=== PATIENT | female | born 1985 | race African-American/Black ===

== ENCOUNTER 2017-01-17 10:48 | Day surgery (SDC) | payer OTHER ==
[2017-01-17] MEDS ORDERED: morphine CARPU-JECT 4 MG/1 ML DISP.SYRIN IVPUSH ONE ×2 (11:43→13:59)
[2017-01-17] MEDS ORDERED: SODIUM CHLORIDE 1,000 ML IV STA (11:43)
[2017-01-17] MEDS ORDERED: morphine CARPU-JECT 2 MG/1 ML DISP.SYRIN ONE ×2 (11:57→14:03)
--- NOTE | 2017-01-17 12:02 | PDOC ---
History of Present Illness - General Chief Complaint: Pain Stated Complaint: ABD PAIN Time Seen by Provider: 01/17/17 11:37 History Source: Patient - History of Present Illness Timing/Duration: reports: constant Quality: reports: severe Abdominal Pain Onset Location: reports: generalized abdomen Past History - Past Medical History Allergies/Adverse Reactions: Allergies Allergy/AdvReac Type Severity Reaction Status Date / Time amoxicillin AdvReac Verified 01/17/17 10:53 Home Medications: Ambulatory Orders Elviteg/Martha/Emtric/Tenofo Dis [Stribild Tablet] 1 each PO DAILY 01/17/17 HIV: Yes - Psycho/Social/Smoking Cessation Hx Anxiety: No Suicidal Ideation: No Smoking History: Never smoked Hx Alcohol Use: Yes (SOCIAL) Drug/Substance Use Hx: No Substance Use Type: None Review of Systems - Review of Systems Constitutional: No: Chills, Fever ABD/GI: Yes: Diarrhea, Abdominal cramping. No: Nausea, Vomiting : No: Dysuria *Physical Exam - Vital Signs Last Vital Signs Temp Pulse Resp BP Pulse Ox 98.2 F 96 H 20 100/67 98 01/17/17 10:50 01/17/17 10:50 01/17/17 10:50 01/17/17 10:50 01/17/17 10:50 - Physical Exam General Appearance: Yes: Appropriately Dressed, Mild Distress HEENT: positive: Normal Voice Neck: positive: Supple Respiratory/Chest: negative: Respiratory Distress Gastrointestinal/Abdominal: positive: Tender (diffusely, most notably over RLQ) , Soft, Other (neg murpheys). negative: Distended, Guarding, Rebound Musculoskeletal: negative: CVA Tenderness Integumentary: positive: Dry, Warm Neurologic: positive: Fully Oriented, Alert, Normal Mood/Affect ED Treatment Course - LABORATORY CBC & Chemistry Diagram: 01/17/17 12:00 01/17/17 12:00 - RADIOLOGY Radiology Studies Ordered: Category Date Time Status ABDOMEN & PELVIS CT WITH CONTR [CT] Stat CT Scan 01/17/17 11:48 Ordered Medical Decision Making - Medical Decision Making 01/17/17 11:49 31 yo F, h/o HIV on meds, unknown cd4/VL, no OIs, p/w abd pain w/ diarrhea. Patient reports severe diffuse abdominal pain since yesterday associated with multiple episodes of non-bloody, watery stool. No nausea, vomiting, fever, chills, dysuria or vaginal discharge. Patient reports having similar episodes multiple times in the past that usually spontaneously resolves. States she presented to ED this time because of severity of symptoms. No unusual food, recent abx use, sick contact or travel. See exam R/o appy vs colitis vs gastroenteritis -pain control -zofran -IVF -labs -CT 01/17/17 12:07 01/17/17 13:[address] as per radiology. Pre-op labs ordered and surgery c/s pending 01/17/17 14:02 Case d/w Dr Simon who wants pt admitted to surgery for OR today *DC/Admit/Observation/Transfer Diagnosis at time of Disposition: Acute appendicitis Qualifiers: Acute appendicitis type: unspecified acute appendicitis type Qualified Code(s) : K35.80 - Unspecified acute appendicitis - Discharge Dispostion Condition at time of disposition: Fair Admit: Yes - Referrals Referrals: STAFF,NOT ON [Primary Care Provider] -
[2017-01-17 12:11] LABS: BASOPHIL 0.8 % (0-2.0); EOSINOPHIL 0.2 % (0-4.5); MCH 30.4 pg (25.7-33.7); MCHC 33.9 g/dl (32.0-36.0); MEAN CELL VOLUME 89.7 fl (80-96); MEAN PLT VOLUME 6.9 fl (7.5-11.1); NEUTROPHILS 66.6 % (42.8-82.8); PLATELET COUNT 275 K/MM3 (134-434); RDW 12.7 % (11.6-15.6); WHITE BLOOD COUNT 9.6 K/mm3 (4.0-10.0)
[2017-01-17 12:29] LABS: URINE APPEARANCE CLOUDY; URINE BILIRUBIN NEGATIVE (NEGATIVE); URINE COLOR AMBER; URINE GLUCOSE (UA) NEGATIVE (NEGATIVE); URINE KETONE 1+ (NEGATIVE); URINE NITRITE NEGATIVE (NEGATIVE); URINE UROBILINOGEN NEGATIVE E.U./dl (0.2-1.0)
[2017-01-17 12:33] LABS: URINE BLOOD 1+ (NEGATIVE); URINE LEUK ESTERASE 3+ (NEGATIVE); URINE PROTEIN 1+ (NEGATIVE)
[2017-01-17 12:34] LABS: ALBUMIN 3.5 g/dl (3.4-5.0); ANION GAP 10 (8-16); CALCIUM 8.7 mg/dL (8.5-10.1); CO2 27 mmol/L (21-32); CREATININE 0.9 mg/dL (0.55-1.02); GLUCOSE,RANDOM 79 mg/dL (74-106); SGOT/AST 8 U/L (15-37); SGPT/ALT 14 U/L (12-78)
[2017-01-17 12:37] LABS: ALK PHOS 76 U/L (45-117); BILIRUBIN,TOTAL 0.8 mg/dL (0.2-1.0); TOT PROT 7.4 g/dl (6.4-8.2)
[2017-01-17 12:39] LABS: URINE BACTERIA RARE /hpf (NONE SEEN); URINE MUCUS RARE; URINE RBC 17 /hpf (0-3); URINE WBC 35 /hpf (3-5)
[2017-01-17 15:01] LABS: INR 1.44 (0.82-1.09)
[2017-01-17] MEDS ORDERED: ACETAMINOPHEN INJECTION 100 ML IVPB ONE (15:01)
[2017-01-17] MEDS ORDERED: SUCCINYLCHOLINE CHLORIDE 200 MG/10 ML VIAL ONE (15:10)
[2017-01-17] MEDS ORDERED: PROPOFOL 20 ML ONE ×2 (15:10)
[2017-01-17] MEDS ORDERED: ROCURONIUM BROMIDE 50 MG/5 ML VIAL ONE (15:10)
[2017-01-17] MEDS ORDERED: MIDAZOLAM HCL 2 MG/2 ML SINGLE DOSE VIAL ONE (15:11)
--- NOTE | 2017-01-17 15:27 | HP ---
Admitting History and Physical - Admission Chief Complaint: abd pain History of Present Illness: pt is a 31F hx HIV with 1 day hx abd pain which worsening and moved to [facility]. came to ER and workup reveals appendicitis on CT (nonperforated) History Source: Patient Limitations to Obtaining History: No Limitations - Past Medical History ...: No Infectious Disease: Yes: HIV - Smoking History Smoking history: Never smoked - Alcohol/Substance Use Hx Alcohol Use: Yes (SOCIAL) Home Medications - Allergies Allergies/Adverse Reactions: Allergies Allergy/AdvReac Type Severity Reaction Status Date / Time amoxicillin AdvReac Verified 01/17/17 10:53 - Home Medications Home Medications: Ambulatory Orders Elviteg/Martha/Emtric/Tenofo Dis [Stribild Tablet] 1 each PO DAILY 01/17/17 Review of Systems - Review of Systems Constitutional: denies: Chills, Fever Eyes: denies: Blind Spots, Blurred Vision HENT: denies: Difficult Swallowing, Ear Discharge Neck: denies: Decreased ROM, Lumps Cardiovascular: denies: Chest Pain, Edema Respiratory: denies: Cough, Exercise Intolerance Gastrointestinal: reports: Abdominal Pain Genitourinary: denies: Burning Breasts: denies: Lumps, Pain Musculoskeletal: denies: Back Pain, Joint Pain Integumentary: denies: Blister, Bruising Neurological: denies: Change in Speech, Confusion Endocrine: denies: Excessive Sweating, Flushing Hematology/Lymphatic: denies: Easily Bruised, Excessive Bleeding Psychiatric: denies: Altered Sleep Pattern, Anxiety Physical Examination Vital Signs: Vital Signs Temperature 98.3 F 01/17/17 14:41 Pulse Rate 75 01/17/17 14:41 Respiratory Rate 18 01/17/17 14:41 Blood Pressure 127/73 01/17/17 14:41 O2 Sat by Pulse Oximetry (%) 100 01/17/17 14:41 Constitutional: Yes: No Distress, Calm Eyes: Yes: Conjunctiva Clear HENT: Yes: Atraumatic Neck: Yes: Supple, Trachea Midline Cardiovascular: Yes: Regular Rate and Rhythm Respiratory: Yes: Regular Gastrointestinal: Yes: Soft, Tenderness. No: Distention ...Rectal Exam: Yes: Deferred Renal/: No: CVA Tenderness - Left, CVA Tenderness - Right Musculoskeletal: No: Joint Stiffness, Joint Swelling Extremities: No: Calf Tenderness, Erythema Integumentary: No: Erythema, Rash Neurological: Yes: Alert, Oriented Psychiatric: Yes: Alert, Oriented Labs: CBC, BMP 01/17/17 12:00 01/17/17 12:00 Imaging - Results Cat Scan: Report Reviewed Problem List - Problems (1) Acute appendicitis Assessment/Plan: for lap appy 23hr d/c in am likely Code(s): K35.80 - UNSPECIFIED ACUTE APPENDICITIS Qualifiers: Acute appendicitis type: unspecified acute appendicitis type Qualified Code(s): K35.80 - Unspecified acute appendicitis
[2017-01-17] MEDS ORDERED: GENTAMICIN SO4 80 MG/2 ML VIAL ONE (15:28)
[2017-01-17] MEDS ORDERED: CLINDAMYCIN 600 MG PREMIX BAG IVPB ONE (15:33)
[2017-01-17] MEDS ORDERED: GENTAMICIN 80MG PREMIX BAG IVPB ONE (15:39)
[2017-01-17] MEDS ORDERED: BUPIVACAINE HCL/PF 0.5% (5MG/ML) 10 ML VIAL ONE (16:23)
[2017-01-17] MEDS ORDERED: NEOSTIGMINE METHYLSULFATE 0.5 MG/ML - 10 ML MDV ONE (16:24)
[2017-01-17] MEDS ORDERED: GLYCOPYRROLATE 0.2 MG/1 ML VIAL ONE (16:25)
[2017-01-17] MEDS ORDERED: BUPIVACAINE HCL/PF 0.5% (5MG/ML) 10 ML VIAL IJ ONE (16:32)
[2017-01-17] MEDS ORDERED: oxyCODONE HCL 5 MG TABLET PO PRN (16:37)
[2017-01-17] MEDS ORDERED: KETOROLAC TROMETHAMINE 30 MG/1 ML VIAL IVPUSH PRN (16:37)
[2017-01-17] MEDS ORDERED: ONDANSETRON 4 MG/2 ML VIAL IVPB PRN (16:37)
[2017-01-17] MEDS ORDERED: DEXTROSE 5%-0.45% SALINE 1,000 ML IV SCH (16:45)
[2017-01-17] MEDS ORDERED: PROMETHAZINE HCL 25 MG/1 ML VIAL IVPUSH PRN (17:02)
[2017-01-17] MEDS ORDERED: ONDANSETRON 4 MG/2 ML VIAL IVPUSH PRN (17:02)
[2017-01-17] MEDS ORDERED: LACTATED RINGERS SOLUTION 1,000 ML IV SCH (17:15)
[2017-01-17] MEDS ORDERED: KETOROLAC TROMETHAMINE 30 MG/1 ML VIAL ONE (17:41)
[2017-01-17] MEDS ORDERED: ONDANSETRON 4 MG/2 ML VIAL ONE (18:16)
[2017-01-17 18:42] VITALS: BMI 39.6
[2017-01-17] MEDS: oxyCODONE HCL 5 MG TABLET PO PRN (21:28)
[2017-01-18 05:58] VITALS: PULSE 51; TEMP 98.3
[2017-01-18] MEDS: oxyCODONE HCL 5 MG TABLET PO PRN ×2 (06:35→11:00)
--- NOTE | 2017-01-18 08:06 | PN ---
Progress Note (short form) - Note Progress Note: Anesthesia POD#1 S/P Laproscopic Appendectomy under GA VSS awake,oriented,comfortable.No N/V. pain is under control. No complications encountered. Jovanna Chávez MD.
--- NOTE | 2017-01-18 08:08 | OP ---
DATE OF OPERATION: 01/17/2017 PREOPERATIVE DIAGNOSIS: Appendicitis. POSTOPERATIVE DIAGNOSIS: Appendicitis. PROCEDURE PERFORMED: Laparoscopic appendectomy. SURGEON: Zandra Simon MD ANESTHESIA: General endotracheal anesthesia. ESTIMATED BLOOD LOSS: Minimal. DESCRIPTION OF PROCEDURE: The patient was brought to the operating room from the emergency room after confirming name, date of and medical record number. She was placed in the supine position. SCDs for DVT prophylaxis were applied. She was given appropriate perioperative antibiotics. She was then prepped and draped in the usual sterile fashion after she was induced and intubated. A Barakat catheter was placed under sterile conditions. She was, again, prepped and draped. A time-out was then performed. A 1-inch supraumbilical incision was made and I bluntly dissected down to the fascia. I used electrocautery to go through the fascia. Then I lifted her abdominal wall anteriorly and continued to go through the fascia with electrocautery. Once through, I saw the peritoneum and I used the Falguni clamp to bluntly go through it and then enter the abdomen. I then placed my finger inside and performed a finger sweep to ensure no adhesions. At this point I placed a 12-mm balloon Donny-type trocar inside the abdomen and insufflated the abdomen to a pressure of 15 mmHg. I then placed a 5-mm trocar in the suprapubic region and one in the left lower quadrant, with transillumination to try to avoid injury to abdominal wall blood vessels. However, the abdominal wall was markedly thick and it was very difficult to see the abdominal wall blood vessels. At this point the patient was then placed in the Trendelenburg position with the right side up, and the appendix was densely adhered to the terminal ileum. It was gently fractured off. Once it was fractured off, I used the hook to dissect some of the attachments to the lateral side wall. Then I used the [place] dissector to dissect at the base of the appendix. Once this was done, I changed the camera to a 5-mm camera, placed it in the left lower quadrant and then used a blue load stapler to take the base of the appendix, careful to not injury the ileocecal valve. Once this was taken, I then used a white load stapler to take the mesentery of the appendix. I then placed a 10-mm special retrieval bag and sent it off the field for permanent extension. Hemostasis was noted to be perfect. I then desufflated the abdomen and then closed the fascia with a [id number] 0 Vicryl suture for the supraumbilical fascia. The skin and subcutaneous tissues were then ensured for hemostasis with electrocautery and then reapproximated with 4-0 Monocryl. Dermabond was then applied. All counts were correct. The Barakat catheter is to be removed at the end of the case. ZANDRA SIMON M.D. NUPUR/[id number]
[2017-01-18 10:31] VITALS: BP 120/59
--- NOTE | 2017-01-18 12:37 | DS ---
Physical Examination Vital Signs: Vital Signs Temperature 98.3 F 01/18/17 09:00 Pulse Rate 51 L 01/18/17 09:00 Respiratory Rate 20 01/18/17 09:00 Blood Pressure 120/59 01/18/17 09:00 O2 Sat by Pulse Oximetry (%) 99 01/18/17 09:00 Constitutional: Yes: No Distress, Calm Eyes: Yes: Conjunctiva Clear, EOM Intact HENT: Yes: Atraumatic, Normocephalic Neck: Yes: Supple, Trachea Midline Cardiovascular: Yes: Regular Rate and Rhythm Respiratory: Yes: Regular, CTA Bilaterally Gastrointestinal: Yes: Soft. No: Distention, Tenderness ...Rectal Exam: Yes: Deferred Renal/: No: CVA Tenderness - Left, CVA Tenderness - Right Musculoskeletal: No: Joint Stiffness, Joint Swelling Extremities: No: Calf Tenderness, Erythema Integumentary: No: Erythema, Rash Wound/Incision: Yes: Clean/Dry, Well Approximated Neurological: Yes: Alert, Oriented Psychiatric: Yes: Alert, Oriented Labs: CBC, BMP 01/17/17 12:00 01/17/17 12:00 Discharge Summary Reason For Visit: ACUTE APPENDICITIS Current Active Problems Acute appendicitis (Acute) Procedures: Principal: lap appendectomy Hospital Course: admitted for appendicitis. underwent appendectomy and was discharged postop improved condition. Condition: Fair - Instructions Diet, Activity, Other Instructions: regular diet. can shower on 01/18. no heavy lifting 30lbs x 3 weeks. f/u with Dr. Simon in 1-2 weeks. call [phone] to make appt. Referrals: Maxx Simon MD [Staff Physician] - STAFF,NOT ON [Primary Care Provider] - Disposition: HOME - Home Medications Comprehensive Discharge Medication List: Ambulatory Orders Elviteg/Martha/Emtric/Tenofo Dis [Stribild Tablet] 1 each PO DAILY 01/17/17 Oxycodone HCl/Acetaminophen [Percocet 5-325 mg Tablet] 1 tab PO Q4H PRN #30 tablet MDD 8 01/17/17
--- NOTE | 2017-01-19 13:42 | PATH ---
Surgical Pathology Report Patient Name: ABBE TELLES [facility]. Rec. #: [id number] /Age/Gender: 1985 (Age: 31) / F Account: [id number] Location: AMBULATORY SURG Taken: 01/17/2017 Received: 01/18/2017 Reported: 01/19/2017 Physicians: Maxx Simon MD Specimen(s) Received APPENDIX Clinical History Acute appendicitis Final Diagnosis APPENDIX, APPENDECTOMY: ACUTE APPENDICITIS AND PERIAPPENDICITIS. Electronically Signed Wade Brown M.D. Gross Description Received in formalin, labeled "appendix" is a 6.5 cm. in length vermiform appendix with a stapled margin of resection and abundant attached fat. The serosa is ortiz with marked attached exudate. Sectioning reveals a focally hemorrhagic lumen. The wall of the appendix averages 0.1 cm in thickness. Senior Clinical [employer] Program[employer] sections are submitted in one cassette. /01/18/2017 saudi/01/18/2017
== END 2017-01-18 13:08 | disposition home or self-care (01) ==
LOC: JER 10:48 → UNDOADMIN 14:01 → JERBED 14:01 → JASUSAT 14:01 → J6S 17:55 → JASUSAT 01-18 13:08
PROVIDERS: ATTEND Surgery
PROC: 0DTJ4ZZ Resection of Appendix, Percutaneous Endoscopic Approach (ICD-10-PCS; principal; 2017-01-17 15:00)
DX: K37 Unspecified appendicitis (principal)
CPT/HCPCS: 36415; 74177-TC; 80053; 81003; 81015; 84703; 85025; 85610; 86850; 86900; 86901; 87086; 88304-TC; 94760; 99284-25